=== PATIENT | male | born 1980 | race African-American/Black ===

== ENCOUNTER 2019-11-18 03:27 | Emergency (ER) | payer MEDICAID ==
[~2019-11-18] VITALS: Ht 175.3 cm; Wt 59.0 kg
[2019-11-18 03:30] VITALS: BP 137/90
--- NOTE | 2019-11-18 04:22 | NUR ---
PT TO BED #11
--- NOTE | 2019-11-18 04:30 | NUR ---
68 Y/O MALE BIBA C/O PASSED OUT TODAY. PT DENIES HITTING HEAD. NO INJURIES NOTED. DENIES PAIN. DENIES N/V/D. ABD SOFT, ROUND, NONTENDER TO PALP. BOWEL SOUNDS PRESENT X 4 QUAD. PT AO X4 BREATHING EVEN AND UNLABORED. SKIN WARM AND DRY. BED LOCKED IN LOWEST POSITION, SIDE RAILS UP X1. MEDHX: ASTHMA ALLERGIES: NKA
--- NOTE | 2019-11-18 06:08 | NUR ---
PT HAS EYES CLOSED, RESPIRATIONS EVEN AND UNLABORED, CHEST RISE IS SYMMETRICAL. WILL CONTINUE TO MONITOR.
[2019-11-18 06:21] LABS: BASOPHILS % (AUTO) 0.5 % (0.0-2.0); EOSINOPHILS # (AUTO) 0.3 K/uL (0-0.4); EOSINOPHILS % (AUTO) 3.4 % (0.0-4.0); HEMATOCRIT 45.2 % (36-52); HEMOGLOBIN 14.8 g/dL (12.0-18.0); LYMPHOCYTES # (AUTO) 2.3 K/uL (2.0-11.5); LYMPHOCYTES % (AUTO) 28.3 % (20.5-51.1); MEAN CORPUSCULAR HEMOGLOBIN 32 pg (27-31); MEAN CORPUSCULAR HGB CONC 33 g/dL (33-37); MEAN CORPUSCULAR VOLUME 96.1 fL (80-94); MONOCYTES # (AUTO) 0.7 K/uL (0.8-1.0); MONOCYTES % (AUTO) 8.8 % (1.7-9.3); NEUTROPHILS # (AUTO) 4.9 K/uL (1.8-7.7); PLATELET COUNT (AUTO) 219 K/uL (140-450); RED CELL DISTRIBUTION WIDTH 14.7 % (11.6-13.7); WHITE BLOOD COUNT (AUTO) 8.3 K/uL (4.8-10.8)
[2019-11-18 06:25] LABS: ALBUMIN 3.9 g/dL (3.4-5.0); CREATININE 0.8 mg/dL (0.7-1.3)
[2019-11-18 06:25] LABS: BARBITURATE, URINE NEG. ng/ml (NEG <=200); BENZODIAZEPINE, URINE NEG. ng/mL (NEG <=200); CANNABINOID, URINE NEG. ng/mL (NEG <=50); COCAINE, URINE NEG. ng/mL (NEG <=300); OPIATE, URINE NEG. ng/mL (NEG <=2000)
[2019-11-18 06:38] LABS: ANION GAP 13.9 (8-16); CARBON DIOXIDE 30.1 mmol/L (21-32)
[2019-11-18 06:44] LABS: PHENCYCLIDINE SCREEN,URINE NEG ng/mL (NEG <=25)
--- NOTE | 2019-11-18 06:57 | NUR ---
DCPatient discharged with v/s stable. Written and verbal after care instructions ABOUT WEAKNESS given and explained. Patient verbalized understanding. Ambulatory with steady gait. All questions addressed prior to discharge. Advised to follow up with PMD.
[2019-11-18 07:05] VITALS: BP 118/63
--- NOTE | 2019-11-18 07:06 | NUR ---
Patient given written and verbal discharge instructions and verbalizes understanding. Given copies of tests performed during visit. Patient is awake, alert and oriented. Ambulatory with steady gait. Refuses offer of [facility] placement. Given list of available shelters in surrounding areas. PATIENT GIVEN FOOD, CLOTHES APPROPRIATE TO WEATHER
== END 2019-11-18 07:06 | disposition home or self-care (01) ==
LOC: MED 03:27
DX: R55 Syncope and collapse (principal); J45.909 Unspecified asthma, uncomplicated; Z00.00 Encounter for general adult medical examination without abnormal findings
CPT/HCPCS: 36415; 80053; 80305; 85025; 93005; 99284